=== PATIENT | male | born 1955 | race Caucasian/White ===

== ENCOUNTER 2022-02-01 10:53 | Emergency (ER) | payer OTHER ==
[2022-02-01 11:11] VITALS: BP 129/91; PULSE 58; TEMP 98.2; BMI 27.1
[2022-02-01] MEDS ORDERED: ACETAMINOPHEN 500 MG TABLET (FP) PO ONE (11:15)
[2022-02-01] MEDS ORDERED: ACETAMINOPHEN 325 MG TABLET (FP) ONE (11:20)
== END 2022-02-01 12:13 | disposition home or self-care (01) ==
LOC: FER 10:53
DX: M79.671 Pain in right foot (principal); M72.2 Plantar fascial fibromatosis
CPT/HCPCS: 73630-TC-RT-FY; 99283-25